=== PATIENT | female | born 1980 | race Hispanic/Latino ===

== ENCOUNTER 2017-03-05 20:38 | Observation (INO) | payer MEDICAID, OTHER ==
[2017-03-05] MEDS ORDERED: Sodium Chloride 0.9% 1,000 ML IV STA (21:39)
[2017-03-05] MEDS ORDERED: Vancomycin 1gm in NS 250ml 1 GM/250 ML BAG IVPB STA (21:39)
--- NOTE | 2017-03-05 21:43 | ED PDOC ---
Arrival/HPI - General Time Seen by Provider: 03/05/17 20:51 - History of Present Illness Narrative History of Present Illness (Text): 37 y/o F c history of IV drug use p/w R leg swelling and erythema x 4 days. Patient states she injected herself in the R foot and began having erythema and swelling and pain in the foot. Last night, the symptoms became obviously worse with streaks of erythema extending up the leg and a small protuberance on the dorsum of the foot. Reports subjective fever and chills. Denies chest pain, dyspnea, vomiting, diarrhea, dysuria, cough. Past Medical History - Past History Past History: No Previous - Infectious Disease Hx of Infectious Diseases: None - Tetanus Immunization Tetanus Immunization: Unknown - Cardiac Hx Cardiac Disorders: No - Pulmonary Hx Asthma: Yes - Neurological Hx Multiple Sclerosis: Yes - HEENT Hx HEENT Disorder: No - Renal Hx Renal Disorder: No Hx Kidney Stones: No - Endocrine/Metabolic Hx Hyperthyroidism: Yes - Hematological/Oncological Hx Blood Disorders: No - Integumentary Hx Dermatological Disorder: No - Musculoskeletal/Rheumatological Hx Falls: No Hx Herniated Disk: Yes Other/Comment: carpal tunnel syndrome - Gastrointestinal Hx Diverticulitis: Yes - Genitourinary/Gynecological Hx Genitourinary Disorders: No - Psychiatric Hx Anxiety: Yes Hx Depression: Yes Hx Substance Use: Yes - Past Surgical History Past Surgical History: No Previous - Surgical History Hx Coronary Stent: No - Anesthesia Hx Anesthesia: Yes Hx Anesthesia Reactions: No Hx Malignant Hyperthermia: No - Suicidal Assessment Feels Threatened In Home Enviroment: No Family/Social History Family/Social History: No Known Family HX Smoking Status: Heavy Smoker > 10 Cigarettes Daily Hx Alcohol Use: No Hx Substance Use: Yes Substance used: HEROINE AND OXYCODONE Hx Substance Use Treatment: No Allergies/Home Meds Allergies/Adverse Reactions: Allergies morphine Allergy (Verified 03/06/17 00:58) ANAPHYLAXIS Review of Systems - Physician Review All systems were reviewed & negative as marked: Yes - Review of Systems Constitutional: Fevers Respiratory: absent: SOB Cardiovascular: absent: Chest Pain Physical Exam - Physical Exam Narrative Physical Exam (Text): Constitutional: No acute distress. Head: Normocephalic. Atraumatic. Eyes: PERRL. ENT: Moist mucous membranes. Neck: Supple. Cardiovascular: Regular rate. DP 2+ Chest: No tenderness. Respiratory: Clear to auscultation bilaterally. GI: Soft. Nontender. Nondistended. Back: No CVA tenderness. Musculoskeletal: R lower leg with edema. FROM of digits, ankle, knee. Skin: Erythematous, indurated, warm, tender rash to R foot with streaks extending up lower leg. Neurologic: Alert, no focal deficit. Vital Signs Temp Pulse Resp BP Pulse Ox 03/06/17 03:06 15 97 03/06/17 02:49 67 17 108/65 100 03/05/17 22:16 99.3 F 95 H 20 128/75 100 03/05/17 21:36 99.4 F 87 17 116/76 98 Medical Decision Making ED Course and Treatment: Patient with cellulitis, will treat with Vanco, check labs. Pending labs, sign out to ED night team. - Lab Interpretations Microbiology Results: Microbiology Results 03/05/17 23:00 Urine,Clean Catch Urine Culture - Final Escherichia Coli 03/05/17 23:20 Blood-Venous Blood Culture - Preliminary NO GROWTH AFTER 48 HOURS 03/05/17 22:50 Blood-Venous Blood Culture - Preliminary NO GROWTH AFTER 48 HOURS Lab Results: 03/05/17 22:50 03/05/17 22:50 Lab Results 03/05/17 23:00: Urine Color Yellow, Urine Appearance Sl cloudy, Urine pH 6.0, Ur Specific [place] 1.025, Urine Protein Trace H, Urine Glucose (UA) Negative, Urine Ketones Negative, Urine Blood Trace-intact H, Urine Nitrate Positive H, Urine Bilirubin Negative, Urine Urobilinogen 0.2, Ur Leukocyte Esterase Trace H , Urine RBC 0 - 2, Urine WBC 1 - 3, Ur Epithelial Cells 6 - 8, Urine Bacteria Many, Urine HCG, Qual Negative 03/05/17 22:50: Alcohol, Quantitative < 10 03/05/17 22:50: WBC 9.7, RBC 4.94, Hgb 15.0, Hct 44.0, MCV 89.1, MCH 30.4, MCHC 34.1, RDW 14.9 H, Plt Count 247, MPV 10.6, Gran % 74.1 H, Lymph % (Auto) 16.7 L , [place] % (Auto) 7.4 H, Eos % (Auto) 1.7, Baso % (Auto) 0.1, Gran # 7.16 H, Lymph # 1.6, [place] # 0.7 H, Eos # 0.2, Baso # 0.01, ESR 35 H 03/05/17 22:50: C-React Prot High Sens > 15.00 H 03/05/17 22:50: Sodium 140, Potassium 4.2, Chloride 99, Carbon Dioxide 29, Anion Gap 16, BUN 17, Creatinine 0.7, Est GFR ( Amer) > 60, Est GFR (Non- Af Amer) > 60, Random Glucose 87, Calcium 9.6, Total Bilirubin 1.0, AST 123 H, ALT 115 H, Alkaline Phosphatase 132 H, Total Protein 8.0, Albumin 4.4, Globulin 3.5, Albumin/Globulin Ratio 1.3 - RAD Interpretation Radiology Orders: 03/05/17 21:39 CHEST PORTABLE [RAD] Stat 03/05/17 21:53 FOOT RIGHT 3 VIEWS ROUTINE [RAD] Stat TIBIA FIBULA RIGHT [RAD] Stat - Medication Orders Current Medication Orders: Discontinued Medications Acetaminophen (Tylenol 325mg Tab) 650 mg PO Q6H PRN PRN Reason: Fever >100.4 F Last Admin: 03/06/17 08:37 Dose: 650 mg MAR Pain/Vitals Document 03/06/17 08:37 TW (Rec: 03/06/17 08:39 TW [id number] Pain Reassessment Is This A Pain ReAssessment? No Presence of Pain Presence of Pain Yes Pain Scale Used Pain Scale Used Numeric Location Left, Right or Bilateral Right Pain Location Body Site Foot Description Intermittent Intensity 10 Scale Used Numeric Heparin Sodium (Porcine) (Heparin) 5,000 units SC Q12 ALEXANDREA PRN Reason: Protocol Last Admin: 03/06/17 09:26 Dose: 5,000 units Subcutaneous Administrations Document 03/06/17 09:26 TW (Rec: 03/06/17 09:26 TW [facility] [id number]) Charges for Administration # of Subcutaneous Administrations 1 Sodium Chloride (Sodium Chloride 0.9%) 1,000 mls @ 999 mls/hr IV .Q1H1M STA Stop: 03/05/17 22:39 Last Admin: 03/05/17 23:00 Dose: 999 mls/hr eMAR Start Stop Document 03/05/17 23:00 ND (Rec: 03/05/17 23:26 ND [facility] [id number]) Intravenous Solution Start Date 03/05/17 Start Time 23:00 End Date 03/06/17 End time 00:00 Total Infusion Time 60 Vancomycin HCl (Vancomycin 1gm) 1 gm in 250 mls @ 167 mls/hr IVPB STAT STA PRN Reason: Protocol Stop: 03/05/17 23:08 Last Admin: 03/05/17 23:28 Dose: 167 mls/hr eMAR Start Stop Document 03/05/17 23:28 ND (Rec: 03/05/17 23:28 ND [facility] [id number]) Intravenous Solution Start Date 03/05/17 Start Time 23:28 End Date 03/06/17 End time 01:00 Total Infusion Time 92 Ceftriaxone Sodium (Rocephin 1 Gram Ivpb) 1 gm in 100 mls @ 100 mls/hr IVPB DAILY ALEXANDREA PRN Reason: Protocol Last Admin: 03/06/17 09:24 Dose: 100 mls/hr eMAR Start Stop Document 03/06/17 09:24 TW (Rec: 03/06/17 09:26 TW [facility] [id number]) Intravenous Solution Start Date 03/06/17 Start Time 09:26 End Date 03/06/17 End time 10:26 Total Infusion Time 60 Vancomycin HCl (Vancomycin 1gm) 1 gm in 250 mls @ 167 mls/hr IVPB Q12H ALEXANDREA PRN Reason: Protocol Vancomycin HCl (Vancomycin 1gm) 1 gm in 250 mls @ 167 mls/hr IVPB Q12H ALEXANDREA PRN Reason: Protocol Last Admin: 03/06/17 10:41 Dose: 167 mls/hr eMAR Start Stop Document 03/06/17 10:41 TW (Rec: 03/06/17 10:42 TW [facility] [id number]) Intravenous Solution Start Date 03/06/17 Start Time 10:42 End Date 03/06/17 End time 12:12 Total Infusion Time 90 Sodium Chloride (Sodium Chloride 0.9%) 1,000 mls @ 100 mls/hr IV .Q10H [facility] Last Admin: 03/06/17 06:54 Dose: 100 mls/hr eMAR Start Stop Document 03/06/17 06:54 [facility] (Rec: 03/06/17 06:54 [facility] [id number]) Intravenous Solution Start Date 03/06/17 Start Time 06:54 End Date 03/06/17 Ketorolac Tromethamine (Toradol) 30 mg IVP STAT STA Stop: 03/05/17 21:40 Last Admin: 03/05/17 23:15 Dose: 30 mg MAR Pain Assessment Document 03/05/17 23:15 ND (Rec: 03/05/17 23:28 ND [id number]) Pain Reassessment Is this a pain reassessment? No Sleep Is patient sleeping during reassessment? No Presence of Pain Presence of Pain Yes Pain Scale Used Pain Scale Used Numeric Location Left, Right or Bilateral Right Upper or Lower Lower Pain Location Body Site Foot Description Description Burning Intensity of Pain at present 5 Acceptable Level of Pain 1 Pain Behavior Restlessness Alleviating Factors/Management Medication Techniques Elevation IVP Administration Document 03/05/17 23:15 ND (Rec: 03/05/17 23:28 ND [id number]) Charges for Administration # of IVP Administrations 1 Ondansetron HCl (Zofran Inj) 4 mg IVP Q4H PRN PRN Reason: Nausea/Vomiting Oxycodone HCl (Oxycodone Immediate Release Tab) 30 mg PO Q6H PRN PRN Reason: Pain, moderate (4-7) Pantoprazole Sodium (Protonix Ec Tab) 40 mg PO 0600 ALEXANDREA Last Admin: 03/06/17 06:54 Dose: Disposition/Present on Arrival - Present on Arrival Any Indicators Present on Arrival: No History of DVT/PE: No History of Uncontrolled Diabetes: No Urinary Catheter: No History Surgical Site Infection Following: None - Disposition Have Diagnosis and Disposition been Completed?: Yes Diagnosis: Cellulitis, IV drug abuse Disposition: HOSPITALIZED Disposition Time: 23:00 Condition: GUARDED
[2017-03-05 22:18] VITALS: BMI 23.3
[2017-03-05 23:21] LABS: ALB/GLOB RATIO 1.3 (1.1-1.8); ALKALINE PHOSPHATASE 132 U/L (38-126); ALT/SGPT 115 U/L (7-56); AST/SGOT 123 U/L (14-36); BLOOD UREA NITROGEN 17 mg/dL (7-21); CALCIUM 9.6 mg/dL (8.4-10.5); CARBON DIOXIDE 29 mmol/L (21-33); CHLORIDE 99 mmol/L (98-107); GFR AFRICAN-AMERICAN > 60; GLUCOSE,RANDOM 87 mg/dL (70-110); POTASSIUM 4.2 mmol/L (3.6-5.0); SODIUM 140 mmol/L (132-148)
[2017-03-05 23:24] LABS: BASO # 0.01 K/mm3 (0.0-2.0); BASO % 0.1 % (0.0-3.0); EOS # 0.2 (0.0-0.7); EOS % 1.7 % (1.5-5.0); GRAN # 7.16 (1.4-6.5); GRAN % 74.1 % (50.0-68.0); LYMPH # 1.6 (1.2-3.4); LYMPH % 16.7 % (22.0-35.0); MEAN CELL VOLUME 89.1 fl (80.0-105.0); MEAN CORPUSCULAR HEMOGLOBIN 30.4 pg (25.0-35.0); MEAN CORPUSCULAR HGB CONC 34.1 g/dl (31.0-37.0); MEAN PLATELET VOLUME 10.6 fl (7.0-11.0); MONO # 0.7 (0.1-0.6); MONO % 7.4 % (1.0-6.0); RED CELL DISTRIBUTION WIDTH 14.9 % (11.5-14.5); WHITE BLOOD COUNT 9.7 10^3/ul (4.5-11.0)
[2017-03-05 23:25] LABS: URINE BILIRUBIN NEGATIVE (NEGATIVE); URINE BLOOD TRACE-INTACT (NEGATIVE); URINE GLUCOSE (UA) NEGATIVE (NEGATIVE); URINE KETONE NEGATIVE (NEGATIVE); URINE LEUKOCYTE ESTERASE TRACE Leu/uL (NEGATIVE); URINE PROTEIN TRACE mg/dL (<30 mg/dL); URINE UROBILINOGEN 0.2 E.U./dL (<1 E.U./dL)
[2017-03-05 23:27] LABS: URINE APPEARANCE SL CLOUDY (CLEAR); URINE COLOR YELLOW (YELLOW)
--- NOTE | 2017-03-05 23:32 | ED PDOC ---
Physical Exam Vital Signs Reviewed: Yes Vital Signs Temp Pulse Resp BP Pulse Ox 03/05/17 22:16 99.3 F 95 H 20 128/75 100 03/05/17 21:36 99.4 F 87 17 116/76 98 Temperature: Afebrile Blood Pressure: Normal Pulse: Regular Respiratory Rate: Normal Appearance: Positive for: Well-Appearing, Non-Toxic, Comfortable Pain Distress: None Mental Status: Positive for: Alert and Oriented X 3 Medical Decision Making ED Course and Treatment: 03/05/17 23:00 Case endorsed to me by Dr. Brock, pending labs, re-evaluation, and final disposition. Pt, whose past medical history includes IV drug abuse, presente for right leg swelling with erythema for 4 days, worsening since yesterday evening s/p injecting herself in the area. 03/06/17 01:08 Reviewed radiology, Chest X-ray shows no acute processes. XR Right Tibula/Fibula shows no acute processes. Case discussed with Dr. Simon, who is aware and agrees with plan. Accepts pt in to hospitalist service. Pt will go to [facility] observation for cellulitis. 03/06/17 01:[address] Crespo, medical sales representative instructional media services technician, who is aware and agrees with plan. - Lab Interpretations Lab Results: 03/05/17 22:50 03/05/17 22:50 Lab Results 03/05/17 23:00: Urine Color Yellow, Urine Appearance Sl cloudy, Urine pH 6.0, Ur Specific [place] 1.025, Urine Protein Trace H, Urine Glucose (UA) Negative, Urine Ketones Negative, Urine Blood Trace-intact H, Urine Nitrate Positive H, Urine Bilirubin Negative, Urine Urobilinogen 0.2, Ur Leukocyte Esterase Trace H , Urine RBC 0 - 2, Urine WBC 1 - 3, Ur Epithelial Cells 6 - 8, Urine Bacteria Many, Urine HCG, Qual Negative 03/05/17 22:50: WBC 9.7, RBC 4.94, Hgb 15.0, Hct 44.0, MCV 89.1, MCH 30.4, MCHC 34.1, RDW 14.9 H, Plt Count 247, MPV 10.6, Gran % 74.1 H, Lymph % (Auto) 16.7 L , [place] % (Auto) 7.4 H, Eos % (Auto) 1.7, Baso % (Auto) 0.1, Gran # 7.16 H, Lymph # 1.6, [place] # 0.7 H, Eos # 0.2, Baso # 0.01, ESR 35 H 03/05/17 22:50: Sodium 140, Potassium 4.2, Chloride 99, Carbon Dioxide 29, Anion Gap 16, BUN 17, Creatinine 0.7, Est GFR ( Amer) > 60, Est GFR (Non- Af Amer) > 60, Random Glucose 87, Calcium 9.6, Total Bilirubin 1.0, AST 123 H, ALT 115 H, Alkaline Phosphatase 132 H, Total Protein 8.0, Albumin 4.4, Globulin 3.5, Albumin/Globulin Ratio 1.3 - RAD Interpretation Radiology Orders: 03/05/17 21:39 CHEST PORTABLE [RAD] Stat 03/05/17 21:53 FOOT RIGHT 3 VIEWS ROUTINE [RAD] Stat TIBIA FIBULA RIGHT [RAD] Stat - Medication Orders Current Medication Orders: Discontinued Medications Sodium Chloride (Sodium Chloride 0.9%) 1,000 mls @ 999 mls/hr IV .Q1H1M STA Stop: 03/05/17 22:39 Last Admin: 03/05/17 23:00 Dose: 999 mls/hr eMAR Start Stop Document 03/05/17 23:00 ND (Rec: 03/05/17 23:26 ND [id number]) Intravenous Solution Start Date 03/05/17 Start Time 23:00 End Date 03/06/17 End time 00:00 Total Infusion Time 60 Vancomycin HCl (Vancomycin 1gm) 1 gm in 250 mls @ 167 mls/hr IVPB STAT STA PRN Reason: Protocol Stop: 03/05/17 23:08 Last Admin: 03/05/17 23:28 Dose: 167 mls/hr eMAR Start Stop Document 03/05/17 23:28 ND (Rec: 03/05/17 23:28 ND [id number]) Intravenous Solution Start Date 03/05/17 Start Time 23:28 End Date 03/06/17 End time 01:00 Total Infusion Time 92 Ketorolac Tromethamine (Toradol) 30 mg IVP STAT STA Stop: 03/05/17 21:40 Last Admin: 03/05/17 23:15 Dose: 30 mg MAR Pain Assessment Document 03/05/17 23:15 ND (Rec: 03/05/17 23:28 ND [facility] [id number]) Pain Reassessment Is this a pain reassessment? No Sleep Is patient sleeping during reassessment? No Presence of Pain Presence of Pain Yes Pain Scale Used Pain Scale Used Numeric Location Left, Right or Bilateral Right Upper or Lower Lower Pain Location Body Site Foot Description Description Burning Intensity of Pain at present 5 Acceptable Level of Pain 1 Pain Behavior Restlessness Alleviating Factors/Management Medication Techniques Elevation IVP Administration Document 03/05/17 23:15 ND (Rec: 03/05/17 23:28 ND [id number]) Charges for Administration # of IVP Administrations 1 Disposition/Present on Arrival - Present on Arrival Any Indicators Present on Arrival: No History of DVT/PE: No History of Uncontrolled Diabetes: No Urinary Catheter: No History of Decub. Ulcer: No History Surgical Site Infection Following: None - Disposition Have Diagnosis and Disposition been Completed?: Yes Diagnosis: Cellulitis, IV drug abuse Disposition: HOSPITALIZED Disposition Time: 01:16 Patient Problems: Current Active Problems Problem Status Onset Cellulitis Acute IV drug abuse Chronic Condition: STABLE Discharge Instructions (ExitCare): Cellulitis (ED) Referrals: PCP,NO [Primary Care Provider] - Follow up with primary
[2017-03-05 23:37] LABS: URINE BACTERIA MANY (NEG); URINE RBC 0 - 2 /hpf (0-2)
[2017-03-06] MEDS ORDERED: Vancomycin 1gm in NS 250ml 1 GM/250 ML BAG IVPB SCH ×2 (01:45→10:00)
--- NOTE | 2017-03-06 02:14 | CP.PCM.HP ---
<DARRELL CRESPO - Last Filed: 03/06/17 03:49> History of Present Illness - History of Present Illness History of Present Illness: Darrell Crespo DO PGY1 - Internal Medicine H&P CC: Right foot pain HPI: Patient's history mostly obtained from chart review, as patient was sleeping and only occasionally nodding or shaking her head when asked questions , and was otherwise not responding. 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 Admits to subjective fever and chills. Denies CP, SOB, N /V/D, dysuria, or cough. Further history unobtainable, as patient was asleep, arousable, but not answering questions. PMH: Heroin use/addiction, herniated disc lumbar spine, MS, asthma PSH: Left breast cystectomy FHx: Dad lung CA Allergies: Morphine- swelling Meds: Unobtainable Social: 2-3 cigs/day for 11 years. No drinking. Active heroin user, last used this AM. ROS: - Limited by patient's lethargy, obtained from chart review, as above Present on Admission - Present on Admission Any Indicators Present on Admission: No Past Patient History - Infectious Disease Hx of Infectious Diseases: None - Tetanus Immunizations Tetanus Immunization: Unknown - Past Medical History & Family History Past Medical History?: Yes - Past Social History Smoking Status: Heavy Smoker > 10 Cigarettes Daily - CARDIAC Hx Cardiac Disorders: No - PULMONARY Hx Asthma: Yes - NEUROLOGICAL Hx Multiple Sclerosis: Yes - HEENT Hx HEENT Problems: No - RENAL Hx Chronic Kidney Disease: No Hx Kidney Stones: No - ENDOCRINE/METABOLIC Hx Hyperthyroidism: Yes - HEMATOLOGICAL/ONCOLOGICAL Hx Blood Disorders: No - INTEGUMENTARY Hx Dermatological Problems: No - MUSCULOSKELETAL/RHEUMATOLOGICAL Hx Falls: No Hx Herniated Disk: Yes Other/Comment: carpal tunnel syndrome - GASTROINTESTINAL Hx Diverticulitis: Yes - GENITOURINARY/GYNECOLOGICAL Hx Genitourinary Disorders: No - PSYCHIATRIC Hx Anxiety: Yes Hx Depression: Yes Hx Substance Use: Yes - SURGICAL HISTORY Hx Coronary Stent: No - ANESTHESIA Hx Anesthesia: Yes Hx Anesthesia Reactions: No Hx Malignant Hyperthermia: No Meds Allergies/Adverse Reactions: Allergies Allergy/AdvReac Type Severity Reaction Status Date / Time morphine Allergy ANAPHYLAXIS Verified 03/06/17 00:58 Physical Exam - Constitutional Appears: Non-toxic, No Acute Distress Additional comments: Asleep - Head Exam Head Exam: ATRAUMATIC, NORMOCEPHALIC - Eye Exam Eye Exam: EOMI, PERRL. absent: Scleral icterus Pupil Exam: absent: Miosis, Mydriatic - ENT Exam ENT Exam: Mucous Membranes Dry - Neck Exam Neck exam: Negative for: Lymphadenopathy, Thyromegaly - Respiratory Exam Respiratory Exam: Clear to Auscultation Bilateral, NORMAL BREATHING PATTERN. absent: Rales, Rhonchi, Wheezes - Cardiovascular Exam Cardiovascular Exam: RRR, +S1, +S2. absent: Diastolic murmur, +S4, Systolic Murmur - GI/Abdominal Exam GI & Abdominal Exam: Normal Bowel Sounds, Soft. absent: Tenderness - Extremities Exam Additional comments: Multiple obvious injection sites both arms, as well as dorsum of both feet Right foot: grossly edematous, with large [id number] erythematous nodule on dorsum , appears exquisitely tender as patient withdraws to light palpation, warm overlying skin with normal capillary refill, but nonpalpable pulse; no bleeding , drainage, fluctuance, or crepitus; erythematous streaking up to knee; no palpable popliteal or inguinal lymphadenopathy - Neurological Exam Additional comments: Asleep, lethargic - Psychiatric Exam Additional comments: Unable to assess - Skin Skin Exam: Dry, Intact, Normal Color, Warm Results - Vital Signs Recent Vital Signs: Last Vital Signs Temp 99.3 F 03/05/17 22:16 Pulse 95 H 03/05/17 22:16 Resp 20 03/05/17 22:16 BP 128/75 03/05/17 22:16 Pulse Ox 100 03/05/17 22:16 - Labs Result Diagrams: 03/05/17 22:50 03/05/17 22:50 Assessment & Plan - Assessment and Plan (Free Text) Assessment: 37yo F with PMH significant for active IVDU (heroin), last used this morning, admitted with cellulitis of the right foot, and UTI Plan: 1. Cellulitis R foot - Patient is an active IVDU who recently injected into her right foot, has had swelling and pain x4d - Currently afebrile with no leukocytosis, but relative granulocytosis; physical exam reveals apparent cellulitic process - Foot and ankle XR in the ER does not show signs of osteomyelitis, pending official read. Consider MRI to r/o osteomyelitis - Pt received Vanc in the ER - Start Vanc and Rocephin - Acetaminophen PRN for fever - BCx ordered, pending - ID (Go) consulted, appreciate recs 2. UTI - UA in ER shows cloudy pink urine (seen at bedside), with nitrites and LE positive and many bacteria, though does not appear to be a clean catch specimen - UCx ordered, pending - On Rocephin, as above 3. Transaminitis w/o elevated bilirubin - Patient is active IVDU; on chart review, no history of hepatitis or HIV; nonicteric and no abdominal tenderness on exam; RUQ US not indicated at this time - Alcohol level <10; Acetaminophen level ordered, pending - Acute hepatitis panel ordered, pending - INR ordered, pending - Recheck with AM labs; consider RUQ US and further workup if no improvement, or if patient complains of RUQ abdominal pain 4. h/o IVDU - Last used heroin morning prior to admission - UDS positive for opiates, cocaine, and cannabinoids - HIV screen ordered, pending - Zofran PRN for nausea - Monitor for signs of withdrawal GI/DVT Ppx Patient seen, discussed, and reviewed with attending <Bakari Simon - Last Filed: 03/06/17 04:10> Results - Vital Signs Recent Vital Signs: Last Vital Signs Temp 99.3 F 03/05/17 22:16 Pulse 67 03/06/17 02:49 Resp 15 03/06/17 03:06 BP 108/65 03/06/17 02:49 Pulse Ox 97 03/06/17 03:06 - Labs Result Diagrams: 03/05/17 22:50 03/05/17 22:50 Labs: Laboratory Results - last 24 hr 03/06/17 02:15 Urine Opiates Screen Positive H Urine Methadone Screen Negative Ur Barbiturates Screen Negative Ur Phencyclidine Scrn Negative Ur Amphetamines Screen Negative U Benzodiazepines Scrn Negative U Oth Cocaine Metabols Positive H U Cannabinoids Screen Positive H Attending/Attestation - Attestation I have personally seen and examined this patient.: Yes I have fully participated in the care of the patient.: Yes I have reviewed all pertinent clinical information: Yes Notes (Text): 03/06/17 04:09 Patient was seen while she was in ER room # 11. Medical record was reviewed. Agree with history , physical examination, assessment and plan.
[2017-03-06 04:12] VITALS: BP 93/63; PULSE 70; RESP 18; TEMP 97.6
[2017-03-06] MEDS ORDERED: Pantoprazole 40 mg EC Tab PO SCH (06:00)
[2017-03-06] MEDS ORDERED: Sodium Chloride 0.9% 1,000 ML IV SCH (06:30)
[2017-03-06 07:35] LABS: BASO # 0.02 K/mm3 (0.0-2.0); BASO % 0.2 % (0.0-3.0); EOS # 0.3 (0.0-0.7); EOS % 3.5 % (1.5-5.0); GRAN # 5.47 (1.4-6.5); GRAN % 67.4 % (50.0-68.0); HEMATOCRIT 39.1 % (36.0-48.0); LYMPH # 1.6 (1.2-3.4); LYMPH % 19.9 % (22.0-35.0); MEAN CELL VOLUME 88.9 fl (80.0-105.0); MEAN CORPUSCULAR HEMOGLOBIN 29.1 pg (25.0-35.0); MEAN CORPUSCULAR HGB CONC 32.7 g/dl (31.0-37.0); MONO # 0.7 (0.1-0.6); WHITE BLOOD COUNT 8.1 10^3/ul (4.5-11.0)
[2017-03-06 07:47] LABS: INR 1.06 (0.93-1.08)
[2017-03-06 08:09] LABS: ALB/GLOB RATIO 1.1 (1.1-1.8); ALKALINE PHOSPHATASE 130 U/L (38-126); ALT/SGPT 125 U/L (7-56); AST/SGOT 130 U/L (14-36); BILIRUBIN,TOTAL 0.7 mg/dL (0.2-1.3); BLOOD UREA NITROGEN 17 mg/dL (7-21); CALCIUM 8.4 mg/dL (8.4-10.5); CARBON DIOXIDE 28 mmol/L (21-33); CHLORIDE 105 mmol/L (98-107); GFR AFRICAN-AMERICAN > 60; GLUCOSE,RANDOM 85 mg/dL (70-110); MAGNESIUM 1.8 mg/dL (1.7-2.2); PHOSPHOROUS 3.4 mg/dL (2.5-4.5); POTASSIUM 3.7 mmol/L (3.6-5.0); SODIUM 140 mmol/L (132-148); TOTAL PROTEIN 6.5 g/dL (5.8-8.3)
[2017-03-06 08:40] VITALS: O2SAT 98
[2017-03-06] MEDS ORDERED: cefTRIAXone 1 gm 1 GM/100 ML BAG IVPB SCH (10:00)
[2017-03-06] MEDS ORDERED: oxyCODONE 30 mg Immediate Release Tab PO PRN (11:01)
--- NOTE | 2017-03-06 12:08 | CP.PCM.CON ---
History of Present Illness - History of Present Illness History of Present Illness: Infectious Disease Consultation: March 06, 2017 37 yo Eastern female female presenting with right foot pain and swelling for the past four days which worsened after she injected Heroin into it. She is a known heroin user with previous admissions for cellulitis secondary to heroin injections. PMHx: Asthma IVDA Depression Multiple Sclerosis Back Pain Hyperthyroidism Suicide Attempt 2011May 2004 Heroin Abuse Herniated Disc lumbar spine PSHx: left breast cyst removal - 2011 Ectopic - 2003 Allergies: Morphine - swelling. Social Hx: tobacco 3-6 cig./day x 20 years No EtOH IVDA x 7 months. 10-11 bags of heroine daily Unemployed Family Hx: lung cancer in father Mother - HTN Brother - open heart surgery - CAD Sister - Lupus Active Medications Acetaminophen (Tylenol 325mg Tab) 650 mg PO Q6H PRN PRN Reason: Fever >100.4 F Last Admin: 03/06/17 08:37 Dose: 650 mg Heparin Sodium (Porcine) (Heparin) 5,000 units SC Q12 [facility] PRN Reason: Protocol Last Admin: 03/06/17 09:26 Dose: 5,000 units Ceftriaxone Sodium (Rocephin 1 Gram Ivpb) 1 gm in 100 mls @ 100 mls/hr IVPB DAILY [facility] PRN Reason: Protocol Last Admin: 03/06/17 09:24 Dose: 100 mls/hr Vancomycin HCl (Vancomycin 1gm) 1 gm in 250 mls @ 167 mls/hr IVPB Q12H [facility] PRN Reason: Protocol Last Admin: 03/06/17 10:41 Dose: 167 mls/hr Sodium Chloride (Sodium Chloride 0.9%) 1,000 mls @ 100 mls/hr IV .Q10H [facility] Last Admin: 03/06/17 06:54 Dose: 100 mls/hr Ondansetron HCl (Zofran Inj) 4 mg IVP Q4H PRN PRN Reason: Nausea/Vomiting Oxycodone HCl (Oxycodone Immediate Release Tab) 30 mg PO Q6H PRN PRN Reason: Pain, moderate (4-7) Pantoprazole Sodium (Protonix Ec Tab) 40 mg PO 0600 [facility] Last Admin: 03/06/17 06:54 Dose: Not Given ROS: Only complains of pain in right arm. No fevers, chills, nausea, vomiting, diarrhea, headaches, dizziness, chest pain, abdominal pain, melena, hematuria, hematemesis, hematochezia, depression, or anxiety. Past Patient History - Infectious Disease Hx of Infectious Diseases: None - Tetanus Immunizations Tetanus Immunization: Unknown - Past Medical History & Family History Past Medical History?: Yes - Past Social History Smoking Status: Heavy Smoker > 10 Cigarettes Daily - CARDIAC Hx Cardiac Disorders: No - PULMONARY Hx Asthma: Yes - NEUROLOGICAL Hx Multiple Sclerosis: Yes - HEENT Hx HEENT Problems: No - RENAL Hx Chronic Kidney Disease: No Hx Kidney Stones: No - ENDOCRINE/METABOLIC Hx Hyperthyroidism: Yes - HEMATOLOGICAL/ONCOLOGICAL Hx Blood Disorders: No - INTEGUMENTARY Hx Dermatological Problems: No - MUSCULOSKELETAL/RHEUMATOLOGICAL Hx Falls: No Hx Herniated Disk: Yes Other/Comment: carpal tunnel syndrome - GASTROINTESTINAL Hx Diverticulitis: Yes - GENITOURINARY/GYNECOLOGICAL Hx Genitourinary Disorders: No - PSYCHIATRIC Hx Anxiety: Yes Hx Depression: Yes Hx Substance Use: Yes - SURGICAL HISTORY Hx Coronary Stent: No - ANESTHESIA Hx Anesthesia: Yes Hx Anesthesia Reactions: No Hx Malignant Hyperthermia: No Meds Allergies/Adverse Reactions: Allergies Allergy/AdvReac Type Severity Reaction Status Date / Time morphine Allergy ANAPHYLAXIS Verified 03/06/17 00:58 - Medications Medications: Current Medications Acetaminophen (Tylenol 325mg Tab) 650 mg PO Q6H PRN PRN Reason: Fever >100.4 F Last Admin: 03/06/17 08:37 Dose: 650 mg Heparin Sodium (Porcine) (Heparin) 5,000 units SC Q12 [facility] PRN Reason: Protocol Last Admin: 03/06/17 09:26 Dose: 5,000 units Ceftriaxone Sodium (Rocephin 1 Gram Ivpb) 1 gm in 100 mls @ 100 mls/hr IVPB DAILY [facility] PRN Reason: Protocol Last Admin: 03/06/17 09:24 Dose: 100 mls/hr Vancomycin HCl (Vancomycin 1gm) 1 gm in 250 mls @ 167 mls/hr IVPB Q12H [facility] PRN Reason: Protocol Last Admin: 03/06/17 10:41 Dose: 167 mls/hr Sodium Chloride (Sodium Chloride 0.9%) 1,000 mls @ 100 mls/hr IV .Q10H [facility] Last Admin: 03/06/17 06:54 Dose: 100 mls/hr Ondansetron HCl (Zofran Inj) 4 mg IVP Q4H PRN PRN Reason: Nausea/Vomiting Pantoprazole Sodium (Protonix Ec Tab) 40 mg PO 0600 [facility] Last Admin: 03/06/17 06:54 Dose: Not Given Physical Exam - Constitutional Appears: Non-toxic, No Acute Distress Additional comments: drowsy - Eye Exam Eye Exam: EOMI, PERRL Pupil Exam: NORMAL ACCOMODATION, PERRL - ENT Exam ENT Exam: Mucous Membranes Moist, Normal External Ear Exam, TM's Normal Bilaterally - Neck Exam Neck exam: Positive for: Full Rom, Normal Inspection - Respiratory Exam Respiratory Exam: Clear to Auscultation Bilateral, NORMAL BREATHING PATTERN. absent: Rales, Rhonchi, Wheezes - Cardiovascular Exam Cardiovascular Exam: REGULAR RHYTHM, RRR, +S1, +S2 - GI/Abdominal Exam GI & Abdominal Exam: Normal Bowel Sounds, Soft. absent: Distended, Tenderness - Extremities Exam Additional comments: Multiple obvious injection sites both arms, as well as dorsum of both feet Right foot: grossly edematous, with large [id number] erythematous nodule on dorsum , appears exquisitely tender as patient withdraws to light palpation, warm overlying skin with normal capillary refill, but nonpalpable pulse; no bleeding , drainage, fluctuance, or crepitus; erythematous streaking up to knee; no palpable popliteal or inguinal lymphadenopathy - Neurological Exam Neurological exam: Alert Additional comments: lethargic - Psychiatric Exam Psychiatric exam: Flat Affect - Skin Skin Exam: Dry, Intact, Normal Color, Warm Results - Vital Signs Recent Vital Signs: Last Vital Signs Temp 97.6 F 03/06/17 08:38 Pulse 70 03/06/17 08:38 Resp 18 03/06/17 08:38 BP 93/63 L 03/06/17 08:38 Pulse Ox 98 03/06/17 08:38 - Labs Result Diagrams: 03/06/17 07:00 03/06/17 07:00 Labs: Laboratory Results - last 24 hr 03/06/17 03/06/17 03/06/17 02:15 07:00 07:00 WBC 8.1 RBC 4.40 Hgb 12.8 D Hct 39.1 MCV 88.9 MCH 29.1 MCHC 32.7 RDW 15.0 H Plt Count 229 MPV 11.0 Gran % 67.4 Lymph % (Auto) 19.9 L [place] % (Auto) 9.0 H Eos % (Auto) 3.5 Baso % (Auto) 0.2 Gran # 5.47 Lymph # 1.6 [place] # 0.7 H Eos # 0.3 Baso # 0.02 PT INR Sodium 140 Potassium 3.7 Chloride 105 Carbon Dioxide 28 Anion Gap 11 BUN 17 Creatinine 0.7 Est GFR ( Amer) > 60 Est GFR (Non-Af Amer) > 60 Random Glucose 85 Calcium 8.4 Phosphorus 3.4 Magnesium 1.8 Total Bilirubin 0.7 AST 130 H ALT 125 H Alkaline Phosphatase 130 H Total Protein 6.5 Albumin 3.4 Globulin 3.1 Albumin/Globulin Ratio 1.1 Urine Opiates Screen Positive H Urine Methadone Screen Negative Acetaminophen Ur Barbiturates Screen Negative Ur Phencyclidine Scrn Negative Ur Amphetamines Screen Negative U Benzodiazepines Scrn Negative U Oth Cocaine Metabols Positive H U Cannabinoids Screen Positive H 03/06/17 03/06/17 07:00 07:00 WBC RBC Hgb Hct MCV MCH MCHC RDW Plt Count MPV Gran % Lymph % (Auto) [place] % (Auto) Eos % (Auto) Baso % (Auto) Gran # Lymph # [place] # Eos # Baso # PT 11.4 INR 1.06 Sodium Potassium Chloride Carbon Dioxide Anion Gap BUN Creatinine Est GFR ( Amer) Est GFR (Non-Af Amer) Random Glucose Calcium Phosphorus Magnesium Total Bilirubin AST ALT Alkaline Phosphatase Total Protein Albumin Globulin Albumin/Globulin Ratio Urine Opiates Screen Urine Methadone Screen Acetaminophen < 10.0 L Ur Barbiturates Screen Ur Phencyclidine Scrn Ur Amphetamines Screen U Benzodiazepines Scrn U Oth Cocaine Metabols U Cannabinoids Screen Assessment & Plan - Assessment and Plan (Free Text) Assessment: 37 yo [place] Female with known history of Heroin IVDU with cellulitis of the Right foot that worsened with injection of heroin. The patient has had Staph Aureus infections on her previous visits. Currently on Vancomycin and Rocephin. Found to have transaminitis. History of IVDU with use just prior to this hospitalization. There is a question of a UTI given the urinalysis. Cultures pending. Supportive care. Thank you for allowing me to participate in the care of the patient, we will follow with you.
--- NOTE | 2017-03-06 13:20 | RAD ---
PROCEDURE: Radiographs of the right tibia and fibula. HISTORY: cellulitis COMPARISON: None available. TECHNIQUE: Frontal and lateral views obtained. FINDINGS: BONES: No fracture or destructive lesion. No periosteal reaction noted JOINT SPACES: Unremarkable. OTHER FINDINGS: None. IMPRESSION: No periosteal reaction or osseous lytic changes or destructive changes appreciated right tibia and fibula. . No radiographic suggestion of osteomyelitis. . No gas-forming cellulitis appreciated
--- NOTE | 2017-03-06 13:26 | RAD ---
PROCEDURE: Right Foot Radiographs. HISTORY: cellulitis COMPARISON: None. FINDINGS: BONES: On 1 of 3 views - tiny vertically oriented lucency projects over a lateral exostosis -1st distal phalanx orbits series 2, image 1. This may simply represent a prominent trabecular marking. Its chronicity is unknown. It is not typical for periosteal like reaction of an osteomyelitis. No cortical ill definition seen to suggest osteomyelitis. Top normal variant versus a subacute to chronic nondisplaced trabecular microfracture here are favored . JOINTS: Normal. SOFT TISSUES: Dorsal and lesser plantar soft tissue swelling mid-forefoot mainly centered over the metatarsal -phalangeal joints and metatarsal shafts. No gas-forming cellulitis noted OTHER FINDINGS: None. IMPRESSION: Soft tissue swelling consistent with the clinical history of cellulitis. No gas-forming cellulitis noted. No periosteal reaction or cortical ill definition or destruction seen to suggest more typical radiographic osteomyelitis presentations. The lateral exostosis prominent trabecular marking 1st distal phalanx is probably top normal variant. Another consideration would be a subacute to chronic nondisplaced trabecular microfracture here.
--- NOTE | 2017-03-06 13:29 | RAD ---
HISTORY: cellulitis COMPARISON: 03/01/2015 FINDINGS: LUNGS: No active pulmonary disease. PLEURA: No significant pleural effusion identified, no pneumothorax apparent. CARDIOVASCULAR: Normal. OSSEOUS STRUCTURES: No significant abnormalities. VISUALIZED UPPER ABDOMEN: Normal. OTHER FINDINGS: None. IMPRESSION: No active disease. No interval pathology noted
--- NOTE | 2017-03-06 16:18 | CP.PCM.DIS ---
<Poli Foss - Last Filed: 03/06/17 16:37> Provider - Provider Date of Admission: 03/06/17 01:16 Attending physician: Manuel Rowe MD Primary care physician: NO PRIMARY CARE PROVIDER Consults: Dr. Ramirez Infectious Disease Time Spent in preparation of Discharge (in minutes): 36 Hospital Course - Lab Results Lab Results: Most Recent Lab Values WBC 8.1 10^3/ul (4.5-11.0) 03/06/17 07:00 RBC 4.40 10^6/uL (3.5-6.1) 03/06/17 07:00 Hgb 12.8 g/dL (12.0-16.0) D 03/06/17 07:00 Hct 39.1 % (36.0-48.0) 03/06/17 07:00 MCV 88.9 fl (80.0-105.0) 03/06/17 07:00 MCH 29.1 pg (25.0-35.0) 03/06/17 07:00 MCHC 32.7 g/dl (31.0-37.0) 03/06/17 07:00 RDW 15.0 % (11.5-14.5) H 03/06/17 07:00 Plt Count 229 10^3/uL (120.0-450.0) 03/06/17 07:00 MPV 11.0 fl (7.0-11.0) 03/06/17 07:00 Gran % 67.4 % (50.0-68.0) 03/06/17 07:00 Lymph % (Auto) 19.9 % (22.0-35.0) L 03/06/17 07:00 [place] % (Auto) 9.0 % (1.0-6.0) H 03/06/17 07:00 Eos % (Auto) 3.5 % (1.5-5.0) 03/06/17 07:00 Baso % (Auto) 0.2 % (0.0-3.0) 03/06/17 07:00 Gran # 5.47 (1.4-6.5) 03/06/17 07:00 Lymph # 1.6 (1.2-3.4) 03/06/17 07:00 [place] # 0.7 (0.1-0.6) H 03/06/17 07:00 Eos # 0.3 (0.0-0.7) 03/06/17 07:00 Baso # 0.02 K/mm3 (0.0-2.0) 03/06/17 07:00 ESR 35 mm/hr (0.0-20.0) H 03/05/17 22:50 PT 11.4 Seconds (9.9-11.8) 03/06/17 07:00 INR 1.06 (0.93-1.08) 03/06/17 07:00 Sodium 140 mmol/L (132-148) 03/06/17 07:00 Potassium 3.7 mmol/L (3.6-5.0) 03/06/17 07:00 Chloride 105 mmol/L (98-107) 03/06/17 07:00 Carbon Dioxide 28 mmol/L (21-33) 03/06/17 07:00 Anion Gap 11 (10-20) 03/06/17 07:00 BUN 17 mg/dL (7-21) 03/06/17 07:00 Creatinine 0.7 mg/dL (0.5-1.4) 03/06/17 07:00 Est GFR ( Amer) > 60 03/06/17 07:00 Est GFR (Non-Af Amer) > 60 03/06/17 07:00 Random Glucose 85 mg/dL (70-110) 03/06/17 07:00 Calcium 8.4 mg/dL (8.4-10.5) 03/06/17 07:00 Phosphorus 3.4 mg/dL (2.5-4.5) 03/06/17 07:00 Magnesium 1.8 mg/dL (1.7-2.2) 03/06/17 07:00 Total Bilirubin 0.7 mg/dL (0.2-1.3) 03/06/17 07:00 AST 130 U/L (14-36) H 03/06/17 07:00 ALT 125 U/L (7-56) H 03/06/17 07:00 Alkaline Phosphatase 130 U/L (38-126) H 03/06/17 07:00 C-React Prot High Sens > 15.00 mg/L (1.00-3.00) H 03/05/17 22:50 Total Protein 6.5 g/dL (5.8-8.3) 03/06/17 07:00 Albumin 3.4 g/dL (3.0-4.8) 03/06/17 07:00 Globulin 3.1 gm/dL 03/06/17 07:00 Albumin/Globulin Ratio 1.1 (1.1-1.8) 03/06/17 07:00 Urine Color Yellow (YELLOW) 03/05/17 23:00 Urine Appearance Sl cloudy (CLEAR) 03/05/17 23:00 Urine pH 6.0 (4.7-8.0) 03/05/17 23:00 Ur Specific [place] 1.025 (1.005-1.035) 03/05/17 23:00 Urine Protein Trace mg/dL (<30 mg/dL) H 03/05/17 23:00 Urine Glucose (UA) Negative mg/dL (NEGATIVE) 03/05/17 23:00 Urine Ketones Negative mg/dL (NEGATIVE) 03/05/17 23:00 Urine Blood Trace-intact (NEGATIVE) H 03/05/17 23:00 Urine Nitrate Positive (NEGATIVE) H 03/05/17 23:00 Urine Bilirubin Negative (NEGATIVE) 03/05/17 23:00 Urine Urobilinogen 0.2 E.U./dL (<1 E.U./dL) 03/05/17 23:00 Ur Leukocyte Esterase Trace Dash/uL (NEGATIVE) H 03/05/17 23:00 Urine RBC 0 - 2 /hpf (0-2) 03/05/17 23:00 Urine WBC 1 - 3 /hpf (0-6) 03/05/17 23:00 Ur Epithelial Cells 6 - 8 /hpf (0-5) 03/05/17 23:00 Urine Bacteria Many (NEG) 03/05/17 23:00 Urine HCG, Qual Negative (NEGATIVE) 03/05/17 23:00 Urine Opiates Screen Positive (NEGATIVE) H 03/06/17 02:15 Urine Methadone Screen Negative (NEGATIVE) 03/06/17 02:15 Acetaminophen < 10.0 ug/ml (10.0-20.0) L 03/06/17 07:00 Ur Barbiturates Screen Negative (NEGATIVE) 03/06/17 02:15 Ur Phencyclidine Scrn Negative (NEGATIVE) 03/06/17 02:15 Ur Amphetamines Screen Negative (NEGATIVE) 03/06/17 02:15 U Benzodiazepines Scrn Negative (NEGATIVE) 03/06/17 02:15 U Oth Cocaine Metabols Positive (NEGATIVE) H 03/06/17 02:15 U Cannabinoids Screen Positive (NEGATIVE) H 03/06/17 02:15 Alcohol, Quantitative < 10 mg/dL (0-10) 03/05/17 22:50 Hepatitis A IgM Ab Negative (NEGATIVE) 03/06/17 07:00 Hep Bs Antigen Negative (NEGATIVE) 03/06/17 07:00 Hep B Core IgM Ab Negative (NEGATIVE) 03/06/17 07:00 Hepatitis C Antibody Reactive (NEGATIVE) 03/06/17 07:00 - Hospital Course Hospital Course: 37 year old female with a past medical history of IVDA who presented with 4 days of right lower extremity pain. She was admitted for right foot cellulitis secondary to IVDU and also found to have an occult UTI. She was started on IV Vancomycin and IV Ceftriaxone. X-ray of the right foot showed findings consistent with cellulitis without radiographic evidence of osteomyelitis. Patient was seen by ID as well. The patient, however, decided to sign out AMA abruptly after she thought her pain regiment was not adequate. We discussed with the patient the need for IV antibiotic treatment and the complications of refusing treatment, including, but not limited to bacteremia, sepsis, and . Despite all of our efforts, the patient signed out Against Medical Advice. - Date & Time of H&P Date of H&P: 03/06/17 Time of H&P: 12:00 Discharge Plan - Follow Up Plan Condition: GUARDED Disposition: AGAINST MEDICAL ADVICE Instructions: Cellulitis (DC), Cellulitis (GEN) Referrals: PCP,NO [Primary Care Provider] - <Manuel Rowe - Last Filed: 03/06/17 16:50> Provider - Provider Date of Admission: 03/06/17 01:16 Attending physician: Manuel Rowe MD Primary care physician: NO PRIMARY CARE PROVIDER Hospital Course - Lab Results Lab Results: Most Recent Lab Values WBC 8.1 10^3/ul (4.5-11.0) 03/06/17 07:00 RBC 4.40 10^6/uL (3.5-6.1) 03/06/17 07:00 Hgb 12.8 g/dL (12.0-16.0) D 03/06/17 07:00 Hct 39.1 % (36.0-48.0) 03/06/17 07:00 MCV 88.9 fl (80.0-105.0) 03/06/17 07:00 MCH 29.1 pg (25.0-35.0) 03/06/17 07:00 MCHC 32.7 g/dl (31.0-37.0) 03/06/17 07:00 RDW 15.0 % (11.5-14.5) H 03/06/17 07:00 Plt Count 229 10^3/uL (120.0-450.0) 03/06/17 07:00 MPV 11.0 fl (7.0-11.0) 03/06/17 07:00 Gran % 67.4 % (50.0-68.0) 03/06/17 07:00 Lymph % (Auto) 19.9 % (22.0-35.0) L 03/06/17 07:00 [place] % (Auto) 9.0 % (1.0-6.0) H 03/06/17 07:00 Eos % (Auto) 3.5 % (1.5-5.0) 03/06/17 07:00 Baso % (Auto) 0.2 % (0.0-3.0) 03/06/17 07:00 Gran # 5.47 (1.4-6.5) 03/06/17 07:00 Lymph # 1.6 (1.2-3.4) 03/06/17 07:00 [place] # 0.7 (0.1-0.6) H 03/06/17 07:00 Eos # 0.3 (0.0-0.7) 03/06/17 07:00 Baso # 0.02 K/mm3 (0.0-2.0) 03/06/17 07:00 ESR 35 mm/hr (0.0-20.0) H 03/05/17 22:50 PT 11.4 Seconds (9.9-11.8) 03/06/17 07:00 INR 1.06 (0.93-1.08) 03/06/17 07:00 Sodium 140 mmol/L (132-148) 03/06/17 07:00 Potassium 3.7 mmol/L (3.6-5.0) 03/06/17 07:00 Chloride 105 mmol/L (98-107) 03/06/17 07:00 Carbon Dioxide 28 mmol/L (21-33) 03/06/17 07:00 Anion Gap 11 (10-20) 03/06/17 07:00 BUN 17 mg/dL (7-21) 03/06/17 07:00 Creatinine 0.7 mg/dL (0.5-1.4) 03/06/17 07:00 Est GFR ( Amer) > 60 03/06/17 07:00 Est GFR (Non-Af Amer) > 60 03/06/17 07:00 Random Glucose 85 mg/dL (70-110) 03/06/17 07:00 Calcium 8.4 mg/dL (8.4-10.5) 03/06/17 07:00 Phosphorus 3.4 mg/dL (2.5-4.5) 03/06/17 07:00 Magnesium 1.8 mg/dL (1.7-2.2) 03/06/17 07:00 Total Bilirubin 0.7 mg/dL (0.2-1.3) 03/06/17 07:00 AST 130 U/L (14-36) H 03/06/17 07:00 ALT 125 U/L (7-56) H 03/06/17 07:00 Alkaline Phosphatase 130 U/L (38-126) H 03/06/17 07:00 C-React Prot High Sens > 15.00 mg/L (1.00-3.00) H 03/05/17 22:50 Total Protein 6.5 g/dL (5.8-8.3) 03/06/17 07:00 Albumin 3.4 g/dL (3.0-4.8) 03/06/17 07:00 Globulin 3.1 gm/dL 03/06/17 07:00 Albumin/Globulin Ratio 1.1 (1.1-1.8) 03/06/17 07:00 Urine Color Yellow (YELLOW) 03/05/17 23:00 Urine Appearance Sl cloudy (CLEAR) 03/05/17 23:00 Urine pH 6.0 (4.7-8.0) 03/05/17 23:00 Ur Specific [place] 1.025 (1.005-1.035) 03/05/17 23:00 Urine Protein Trace mg/dL (<30 mg/dL) H 03/05/17 23:00 Urine Glucose (UA) Negative mg/dL (NEGATIVE) 03/05/17 23:00 Urine Ketones Negative mg/dL (NEGATIVE) 03/05/17 23:00 Urine Blood Trace-intact (NEGATIVE) H 03/05/17 23:00 Urine Nitrate Positive (NEGATIVE) H 03/05/17 23:00 Urine Bilirubin Negative (NEGATIVE) 03/05/17 23:00 Urine Urobilinogen 0.2 E.U./dL (<1 E.U./dL) 03/05/17 23:00 Ur Leukocyte Esterase Trace Dash/uL (NEGATIVE) H 03/05/17 23:00 Urine RBC 0 - 2 /hpf (0-2) 03/05/17 23:00 Urine WBC 1 - 3 /hpf (0-6) 03/05/17 23:00 Ur Epithelial Cells 6 - 8 /hpf (0-5) 03/05/17 23:00 Urine Bacteria Many (NEG) 03/05/17 23:00 Urine HCG, Qual Negative (NEGATIVE) 03/05/17 23:00 Urine Opiates Screen Positive (NEGATIVE) H 03/06/17 02:15 Urine Methadone Screen Negative (NEGATIVE) 03/06/17 02:15 Acetaminophen < 10.0 ug/ml (10.0-20.0) L 03/06/17 07:00 Ur Barbiturates Screen Negative (NEGATIVE) 03/06/17 02:15 Ur Phencyclidine Scrn Negative (NEGATIVE) 03/06/17 02:15 Ur Amphetamines Screen Negative (NEGATIVE) 03/06/17 02:15 U Benzodiazepines Scrn Negative (NEGATIVE) 03/06/17 02:15 U Oth Cocaine Metabols Positive (NEGATIVE) H 03/06/17 02:15 U Cannabinoids Screen Positive (NEGATIVE) H 03/06/17 02:15 Alcohol, Quantitative < 10 mg/dL (0-10) 03/05/17 22:50 Hepatitis A IgM Ab Negative (NEGATIVE) 03/06/17 07:00 Hep Bs Antigen Negative (NEGATIVE) 03/06/17 07:00 Hep B Core IgM Ab Negative (NEGATIVE) 03/06/17 07:00 Hepatitis C Antibody Reactive (NEGATIVE) 03/06/17 07:00 Attending/Attestation - Attestation I have personally seen and examined this patient.: Yes I have fully participated in the care of the patient.: Yes I have reviewed all pertinent clinical information, including history, physical exam and plan: Yes Notes (Text): 03/06/17 16:47 attending note; Patient seen and examined with resident. Patient is well known to our service secondary to multiple admission for cellulitis/bacteremia due to IV drug abuse. Currently admitted with right ankle/foot cellulitis secondary to active drug abuse. Started on IV vancomycin and Zosyn. Patient is requesting pain medication. Patient is currently started on OxyCondone. Patient is requesting only IV Dilaudid. Currently patient is not in any withdrawal. Does not appear to be in any pain. Patient's family by the bedside. After multiple arguments by the family member he was advised to step aside. Patient signed AGAINST MEDICAL ADVICE. The possibilities of sepsis, bacteremia, endocarditis and it explained in detail. 03/06/17 16:48
--- NOTE | 2017-03-06 23:19 | CARD ---
APPROVED REPORT EKG Measurement Heart [id number] <Conclusion> Normal sinus rhythm Cannot rule out Anterior infarct, age undetermined Abnormal ECG
== END 2017-03-06 11:30 | disposition left against medical advice (07) ==
LOC: ED 20:38 → ERH 03-06 01:16 → 5RSO 03-06 03:52
PROVIDERS: ADMIT Internal Medicine; ATTEND Internal Medicine
DX: L03.115 Cellulitis of right lower limb (principal); F11.20 Opioid dependence, uncomplicated; N39.0 Urinary tract infection, site not specified; J45.909 Unspecified asthma, uncomplicated; F32.9 Major depressive disorder, single episode, unspecified; G35 Multiple sclerosis; Z88.5 Allergy status to narcotic agent
CPT/HCPCS: 36415; 71010; 73590; 73630; 80053; 80074; 81001; 83735; 84100; 84703; 85025; 85610; 85651; 86140; 87040; 87086; 93005; 96365; 96366; 96375; 99285; G0378; G0480; J0696; J1644; J1885; J7040